=== PATIENT | male | born 1970 | race Two or more races ===

== ENCOUNTER 2020-04-24 11:12 | Emergency (ER) | payer MEDICAID, OTHER, SELFPAY ==
[~2020-04-24] VITALS: Ht 170.2 cm; Wt 86.5 kg
[2020-04-24 11:27] VITALS: BP 128/94
--- NOTE | 2020-04-24 11:38 | NUR ---
pt back to room via WC. Changed into hospital gown. Family at bedside.
--- NOTE | 2020-04-24 11:45 | NUR ---
Daughter, Monique, at bedside assisting in translation. Per daughter pt is in with c/o stomach and generalized swelling and "feels like the inside in going to pop"
[2020-04-24 12:43] LABS: BASOPHILS # (AUTO) 0.06 x10^3/uL (0-0.1); BASOPHILS % (AUTO) 1 % (0-1); EOSINOPHILS # (AUTO) 0.06 x10^3/uL (0-0.4); EOSINOPHILS % (AUTO) 1 % (1-7); LYMPHOCYTES # (AUTO) 1.31 x10^3/uL (1-3.4); LYMPHOCYTES % (AUTO) 19 % (22-44); MD NO; MEAN CORPUSCULAR HEMOGLOBIN 33.5 pg (27.5-34.5); MEAN CORPUSCULAR HGB CONC 32.4 g/dL (33.2-36.2); MEAN CORPUSCULAR VOLUME 103.3 fL (81-97); MEAN PLATELET VOLUME 7.6 fL (7.4-10.4); MONOCYTES # (AUTO) 0.76 x10^3/uL (0.2-0.8); MONOCYTES % (AUTO) 11 % (2-9); NEUTROPHILS # (AUTO) 4.64 x10^3/uL (1.8-6.8); NEUTROPHILS % (AUTO) 68 % (42-75); PLATELET COUNT 218 x10^3/uL (130-400); RED BLOOD COUNT 4.29 x10^6/uL (4.38-5.82); RED CELL DISTRIBUTION WIDTH 14.3 % (9.4-14.8)
--- NOTE | 2020-04-24 12:46 | NUR ---
BREAK RN: US AT BEDSIDE.
[2020-04-24 12:55] LABS: ALBUMIN 2.9 g/dL (3.4-5.0); ANION GAP 8 mmol/L (5-15); CALCIUM 8.4 mg/dL (8.5-10.1); CHLORIDE 109 mmol/L (98-107)
[2020-04-24 13:00] LABS: ALANINE AMINOTRANSFERASE 133 U/L (12-78); ALKALINE PHOSPHATASE 95 U/L (45-117); BILIRUBIN,TOTAL 1.4 mg/dL (0.2-1.0); CREATININE 0.78 mg/dL (0.7-1.3)
--- NOTE | 2020-04-24 14:26 | NUR ---
Contacted pts adolfo Luna, , and discussed discharge paperwork. All questions and concerns addressed and answered. Cheryl on her way to the ER to take pt home.
--- NOTE | 2020-04-24 14:30 | NUR ---
Patient/Caregiver given discharge instructions and they have confirmed that they understand the instructions. Patient ambulatory with steady gait.
== END 2020-04-24 14:38 | disposition home or self-care (01) ==
LOC: ED 12:30
DX: K70.11 Alcoholic hepatitis with ascites (principal); R60.0 Localized edema; E88.09 Other disorders of plasma-protein metabolism, not elsewhere classified
CPT/HCPCS: 36415; 76700; 80053; 83690; 85025; 99284

== ENCOUNTER 2020-04-27 16:12 | Emergency (ER) | payer SELFPAY ==
[~2020-04-27] VITALS: Ht 170.2 cm; Wt 90.0 kg
[2020-04-27] MEDS ORDERED: MORPHINE SULFATE 4 MG/ML, 1ML IVPush PRN (17:00)
[2020-04-27] MEDS ORDERED: ONDANSETRON 2MG/ML, 2ML IVPush ONE (17:00)
--- NOTE | 2020-04-27 17:00 | NUR ---
Alert, answering questions appropriately. Pt states abdominal pain/distention x 8-9 days. Pt is followed by liver team here. Also states that he was d/c'd from ED on Monday for same complaint, no relief from pain meds perscribed. Denies fever/chills. Pt also states, "liquid stool" starting today, pt is on lactulose. Denies chest pain/SOB.
[2020-04-27 17:04] LABS: BASOPHILS # (AUTO) 0.03 x10^3/uL (0-0.1); BASOPHILS % (AUTO) 1 % (0-1); EOSINOPHILS # (AUTO) 0.12 x10^3/uL (0-0.4); EOSINOPHILS % (AUTO) 2 % (1-7); LYMPHOCYTES # (AUTO) 1.18 x10^3/uL (1-3.4); LYMPHOCYTES % (AUTO) 19 % (22-44); MD NO; MEAN CORPUSCULAR HEMOGLOBIN 33.5 pg (27.5-34.5); MEAN CORPUSCULAR HGB CONC 32.6 g/dL (33.2-36.2); MEAN CORPUSCULAR VOLUME 102.7 fL (81-97); MEAN PLATELET VOLUME 7.5 fL (7.4-10.4); MONOCYTES # (AUTO) 0.65 x10^3/uL (0.2-0.8); MONOCYTES % (AUTO) 11 % (2-9); NEUTROPHILS % (AUTO) 68 % (42-75); PLATELET COUNT 234 x10^3/uL (130-400); RED BLOOD COUNT 4.26 x10^6/uL (4.38-5.82); RED CELL DISTRIBUTION WIDTH 14.6 % (9.4-14.8)
[2020-04-27 17:17] LABS: ALANINE AMINOTRANSFERASE 181 U/L (12-78); ALBUMIN 2.8 g/dL (3.4-5.0); ANION GAP 7 mmol/L (5-15); CALCIUM 8.2 mg/dL (8.5-10.1); CHLORIDE 110 mmol/L (98-107); CREATININE 1.03 mg/dL (0.7-1.3)
[2020-04-27 17:19] LABS: ALKALINE PHOSPHATASE 120 U/L (45-117); BILIRUBIN,TOTAL 0.8 mg/dL (0.2-1.0); TOTAL PROTEIN 5.7 g/dL (6.4-8.2)
--- NOTE | 2020-04-27 17:52 | NUR ---
Back from CT
[2020-04-27] MEDS ORDERED: OMNIPAQUE 350 MG/ML, 100ML BOTTLE ONE (17:58)
[2020-04-27 18:16] LABS: MICROSCOPIC INDICATED
--- NOTE | 2020-04-27 18:44 | NUR ---
Resting in [facility]. No needs.
[2020-04-27] MEDS ORDERED: FUROSEMIDE 40 MG TABLET ONE (19:12)
[2020-04-27] MEDS ORDERED: FUROSEMIDE 40 MG TABLET PO ONE (19:30)
[2020-04-27] MEDS ORDERED: POTASSIUM CHLORIDE 20 MEQ TAB.ER.PRT PO ONE (19:30)
--- NOTE | 2020-04-27 19:36 | NUR ---
Patient/Caregiver given discharge instructions and they have confirmed that they understand the instructions. Patient ambulatory with steady gait.
[2020-04-27 19:37] VITALS: BP 140/91
== END 2020-04-27 19:38 | disposition home or self-care (01) ==
LOC: ED 17:55
DX: K70.0 Alcoholic fatty liver (principal); B17.9 Acute viral hepatitis, unspecified; R18.8 Other ascites
CPT/HCPCS: 36415; 74177; 80053; 81001; 83690; 85025; 99285; Q9967

== ENCOUNTER 2020-05-12 06:29 | Emergency (ER) | payer MEDICAID ==
[~2020-05-12] VITALS: Ht 177.8 cm; Wt 92.6 kg
[2020-05-12 06:31] VITALS: BP 106/73
--- NOTE | 2020-05-12 06:46 | NUR ---
ERP TO BEDSIDE.
--- NOTE | 2020-05-12 07:00 | NUR ---
REPORT GIVEN TO EMMANUEL GARCIA.
[2020-05-12 07:10] LABS: BASOPHILS # (AUTO) 0.06 x10^3/uL (0-0.1); BASOPHILS % (AUTO) 1 % (0-1); EOSINOPHILS # (AUTO) 0.12 x10^3/uL (0-0.4); EOSINOPHILS % (AUTO) 2 % (1-7); LYMPHOCYTES # (AUTO) 1.14 x10^3/uL (1-3.4); LYMPHOCYTES % (AUTO) 18 % (22-44); MD NO; MEAN CORPUSCULAR HEMOGLOBIN 31.9 pg (27.5-34.5); MEAN CORPUSCULAR HGB CONC 31.9 g/dL (33.2-36.2); MEAN CORPUSCULAR VOLUME 100.1 fL (81-97); MEAN PLATELET VOLUME 7.7 fL (7.4-10.4); MONOCYTES # (AUTO) 0.76 x10^3/uL (0.2-0.8); MONOCYTES % (AUTO) 12 % (2-9); NEUTROPHILS # (AUTO) 4.21 x10^3/uL (1.8-6.8); NEUTROPHILS % (AUTO) 67 % (42-75); PLATELET COUNT 190 x10^3/uL (130-400); RED BLOOD COUNT 4.23 x10^6/uL (4.38-5.82); RED CELL DISTRIBUTION WIDTH 14.5 % (9.4-14.8)
[2020-05-12 07:21] LABS: ALBUMIN 3.2 g/dL (3.4-5.0); ANION GAP 8 mmol/L (5-15); CALCIUM 8.8 mg/dL (8.5-10.1); CHLORIDE 108 mmol/L (98-107)
[2020-05-12 07:25] LABS: ALANINE AMINOTRANSFERASE 47 U/L (12-78); ALKALINE PHOSPHATASE 115 U/L (45-117); BILIRUBIN,TOTAL 0.6 mg/dL (0.2-1.0); CREATININE 0.81 mg/dL (0.7-1.3); TOTAL PROTEIN 6.5 g/dL (6.4-8.2)
== END 2020-05-12 08:11 | disposition home or self-care (01) ==
LOC: ED 06:51
DX: R10.11 Right upper quadrant pain (principal); R60.0 Localized edema; R10.84 Generalized abdominal pain; R00.0 Tachycardia, unspecified; I10 Essential (primary) hypertension
CPT/HCPCS: 36415; 80053; 83690; 85025; 99283

== ENCOUNTER 2020-06-03 17:22 | Inpatient (IN) | payer MEDICAID ==
[~2020-06-03] VITALS: Ht 170.2 cm; Wt 96.4 kg
--- NOTE | 2020-06-03 18:26 | NUR ---
SHIFT SUPERVISOR RN: PT TO ROOM FROM [facility]
[2020-06-03 18:48] LABS: ALANINE AMINOTRANSFERASE 30 U/L (12-78); ALBUMIN 3.6 g/dL (3.4-5.0); ANION GAP 12 mmol/L (5-15); CALCIUM 8.4 mg/dL (8.5-10.1); CHLORIDE 94 mmol/L (98-107); CREATININE 2.95 mg/dL (0.7-1.3)
[2020-06-03 18:50] LABS: ALKALINE PHOSPHATASE 88 U/L (45-117); BILIRUBIN,TOTAL 1.8 mg/dL (0.2-1.0); TOTAL PROTEIN 7.1 g/dL (6.4-8.2)
--- NOTE | 2020-06-03 18:55 | NUR ---
PT STATED THAT THE DOCTOR TOLD HIM TO STOP TAKING ALL OF HIS MEDICATION ABOUT A WEEK AGO. STATED THAT SINCE THEN HE HAS NOTICED WEIGHT GAIN, AND SWELLING IN HIS LEGS.
[2020-06-03 19:15] LABS: BASOPHILS # (AUTO) 0.03 x10^3/uL (0-0.1); BASOPHILS % (AUTO) 1 % (0-1); EOSINOPHILS # (AUTO) 0.06 x10^3/uL (0-0.4); EOSINOPHILS % (AUTO) 1 % (1-7); LYMPHOCYTES # (AUTO) 1.13 x10^3/uL (1-3.4); LYMPHOCYTES % (AUTO) 21 % (22-44); MD NO; MEAN CORPUSCULAR HEMOGLOBIN 31.4 pg (27.5-34.5); MEAN CORPUSCULAR HGB CONC 33.2 g/dL (33.2-36.2); MEAN PLATELET VOLUME 8.4 fL (7.4-10.4); MONOCYTES # (AUTO) 0.65 x10^3/uL (0.2-0.8); MONOCYTES % (AUTO) 12 % (2-9); NEUTROPHILS # (AUTO) 3.49 x10^3/uL (1.8-6.8); NEUTROPHILS % (AUTO) 65 % (42-75); PLATELET COUNT 115 x10^3/uL (130-400); RED BLOOD COUNT 4.43 x10^6/uL (4.38-5.82); RED CELL DISTRIBUTION WIDTH 14.4 % (9.4-14.8)
[2020-06-03] MEDS ORDERED: POLYETHYLENE GLYCOL 17 GM PACKET PO PRN (21:30)
[2020-06-03] MEDS ORDERED: BISACODYL 10 MG SUPP PR PRN (21:30)
[2020-06-03] MEDS ORDERED: ACETAMINOPHEN 325 MG TABLET PO PRN (21:30)
--- NOTE | 2020-06-03 22:09 | NUR ---
[facility] [phone] PT'S DAUGHTER CALLED FOR UPDATE, OKAY TO TALK TO HER PER PT CONSENT.
[2020-06-03] MEDS: SODIUM CHLORIDE 0.9% 1,000 ML IV SCH (22:20)
--- NOTE | 2020-06-03 22:47 | NUR ---
REPORT GIVN TO ROBIN BENITEZ
[2020-06-03 23:18] VITALS: BP 116/85
[2020-06-04 01:19] LABS: POTASSIUM,URINE RANDOM 73 mmol/L
[2020-06-04 01:33] LABS: CHLORIDE,URINE RANDOM < 10 mmol/L; SODIUM,URINE RANDOM < 5 mmol/L
[2020-06-04 02:18] VITALS: BP 116/76
[2020-06-04 02:46] LABS: MICROSCOPIC INDICATED
[2020-06-04] MEDS: ONDANSETRON ODT 4 MG PO PRN (03:18)
[2020-06-04 04:50] LABS: BASOPHILS # (AUTO) 0.03 x10^3/uL (0-0.1); BASOPHILS % (AUTO) 1 % (0-1); EOSINOPHILS # (AUTO) 0.09 x10^3/uL (0-0.4); EOSINOPHILS % (AUTO) 2 % (1-7); LYMPHOCYTES # (AUTO) 1.31 x10^3/uL (1-3.4); LYMPHOCYTES % (AUTO) 25 % (22-44); MD NO; MEAN CORPUSCULAR HEMOGLOBIN 30.8 pg (27.5-34.5); MEAN CORPUSCULAR HGB CONC 32.5 g/dL (33.2-36.2); MEAN PLATELET VOLUME 8.2 fL (7.4-10.4); MONOCYTES # (AUTO) 0.59 x10^3/uL (0.2-0.8); MONOCYTES % (AUTO) 11 % (2-9); NEUTROPHILS # (AUTO) 3.28 x10^3/uL (1.8-6.8); NEUTROPHILS % (AUTO) 62 % (42-75); PLATELET COUNT 108 x10^3/uL (130-400); RED BLOOD COUNT 4.17 x10^6/uL (4.38-5.82); RED CELL DISTRIBUTION WIDTH 14.5 % (9.4-14.8)
[2020-06-04 05:06] LABS: ANION GAP 13 mmol/L (5-15); CALCIUM 8.3 mg/dL (8.5-10.1); CHLORIDE 94 mmol/L (98-107); CREATININE 3.09 mg/dL (0.7-1.3)
[2020-06-04] MEDS: SODIUM CHLORIDE 0.9% 1,000 ML IV SCH ×2 (05:30→13:30)
[2020-06-04 07:33] VITALS: BP 109/71
[2020-06-04] MEDS: SENNA/DOCUSATE TABLET PO SCH (08:27)
[2020-06-04 13:22] VITALS: BP 123/80
[2020-06-04] MEDS: HEPARIN 5,000 UNITS/ML, 1ML SQ SCH (18:14)
[2020-06-04 18:42] VITALS: BP 107/74
[2020-06-04] MEDS: GUAIFENESIN 200 MG TABLET PO SCH (19:29)
[2020-06-04] MEDS ORDERED: SODIUM CHLORIDE 0.9% 1,000 ML IV SCH (21:30)
[2020-06-05 01:21] VITALS: BP 129/77
[2020-06-05] MEDS: HEPARIN 5,000 UNITS/ML, 1ML SQ SCH ×3 (01:34→17:38)
[2020-06-05] MEDS: GUAIFENESIN/DM 200-20MG, 10ML UDC PO PRN ×3 (01:35→20:33)
[2020-06-05 01:58] LABS: CLOSTRIDIUM DIFFICILE ANTIGEN NEGATIVE; CLOSTRIDIUM DIFFICILE TOXIN NEGATIVE (Negative)
[2020-06-05 06:52] VITALS: BP 128/89
[2020-06-05 06:56] LABS: ANION GAP 15 mmol/L (5-15); CALCIUM 7.9 mg/dL (8.5-10.1); CHLORIDE 91 mmol/L (98-107); CREATININE 3.64 mg/dL (0.7-1.3)
[2020-06-05] MEDS ORDERED: SODIUM BICARBONATE 8.4% 150 MEQ in SODIUM CHLORIDE 0.45% 1,000 ML IV SCH (07:30)
[2020-06-05 07:52] LABS: O2 FLOW ROOM AIR L/min; PH, VENOUS 7.313 pH (7.320-7.420)
[2020-06-05] MEDS: SENNA/DOCUSATE TABLET PO SCH (09:27)
[2020-06-05] MEDS: GUAIFENESIN 200 MG TABLET PO SCH ×2 (09:39→20:34)
[2020-06-05 10:57] LABS: ANION GAP 14 mmol/L (5-15); CALCIUM 7.6 mg/dL (8.5-10.1); CHLORIDE 95 mmol/L (98-107); CREATININE 3.54 mg/dL (0.7-1.3)
[2020-06-05] MEDS: SODIUM BICARBONATE 650 MG TABLET PO SCH ×2 (11:10→20:34)
[2020-06-05 12:12] VITALS: BP 124/87
[2020-06-05 15:53] LABS: ANION GAP 13 mmol/L (5-15); CALCIUM 7.8 mg/dL (8.5-10.1); CHLORIDE 90 mmol/L (98-107); CREATININE 3.51 mg/dL (0.7-1.3)
[2020-06-05 16:00] LABS: INTERNATIONAL NORMALIZED RATIO 1.31 (0.93-1.1); PROTHROMBIN TIME 13.5 Seconds (9.6-11.5)
[2020-06-05 16:50] LABS: POTASSIUM,URINE RANDOM 43 mmol/L
[2020-06-05 16:57] LABS: CHLORIDE,URINE RANDOM < 10 mmol/L; SODIUM,URINE RANDOM < 5 mmol/L
[2020-06-05 17:27] LABS: OSMOLALITY,URINE 360 mOsm/kg (500-850)
[2020-06-05 19:37] VITALS: BP 123/75
[2020-06-05 21:26] LABS: ANION GAP 14 mmol/L (5-15); CHLORIDE 89 mmol/L (98-107)
[2020-06-05 21:27] LABS: CREATININE 3.42 mg/dL (0.7-1.3)
[2020-06-05] MEDS: ONDANSETRON ODT 4 MG PO PRN (23:06)
[2020-06-06 00:34] VITALS: BP 113/75
[2020-06-06 01:25] LABS: ANION GAP 14 mmol/L (5-15); CALCIUM 7.8 mg/dL (8.5-10.1); CHLORIDE 91 mmol/L (98-107); CREATININE 3.34 mg/dL (0.7-1.3)
[2020-06-06] MEDS: HEPARIN 5,000 UNITS/ML, 1ML SQ SCH ×3 (02:22→17:18)
[2020-06-06 05:41] LABS: BASOPHILS # (AUTO) 0.02 x10^3/uL (0-0.1); BASOPHILS % (AUTO) 0 % (0-1); EOSINOPHILS # (AUTO) 0.09 x10^3/uL (0-0.4); EOSINOPHILS % (AUTO) 2 % (1-7); LYMPHOCYTES % (AUTO) 29 % (22-44); MD NO; MEAN CORPUSCULAR HEMOGLOBIN 30.6 pg (27.5-34.5); MEAN CORPUSCULAR HGB CONC 32.3 g/dL (33.2-36.2); MONOCYTES # (AUTO) 0.63 x10^3/uL (0.2-0.8); MONOCYTES % (AUTO) 11 % (2-9); NEUTROPHILS # (AUTO) 3.26 x10^3/uL (1.8-6.8); NEUTROPHILS % (AUTO) 58 % (42-75); PLATELET COUNT 142 x10^3/uL (130-400); RED BLOOD COUNT 4.22 x10^6/uL (4.38-5.82); RED CELL DISTRIBUTION WIDTH 14.1 % (9.4-14.8)
[2020-06-06 05:43] LABS: ANION GAP 13 mmol/L (5-15); CHLORIDE 93 mmol/L (98-107); CREATININE 3.26 mg/dL (0.7-1.3)
[2020-06-06 06:50] VITALS: BP 94/67
[2020-06-06 08:48] LABS: ANION GAP 13 mmol/L (5-15); CALCIUM 8.1 mg/dL (8.5-10.1); CHLORIDE 90 mmol/L (98-107); CREATININE 3.21 mg/dL (0.7-1.3)
[2020-06-06] MEDS: GUAIFENESIN 200 MG TABLET PO SCH ×2 (09:10→20:11)
[2020-06-06] MEDS: SENNA/DOCUSATE TABLET PO SCH (09:10)
[2020-06-06] MEDS: SODIUM BICARBONATE 650 MG TABLET PO SCH ×2 (09:10→20:12)
[2020-06-06] MEDS ORDERED: FUROSEMIDE 100 MG/10 ML IV ONE (10:00)
[2020-06-06 13:29] LABS: ANION GAP 11 mmol/L (5-15); CALCIUM 7.8 mg/dL (8.5-10.1); CHLORIDE 93 mmol/L (98-107); CREATININE 3.12 mg/dL (0.7-1.3)
[2020-06-06 13:34] VITALS: BP 93/64
[2020-06-06 13:36] LABS: TROPONIN I 0.019 ng/mL (0.000-0.045)
[2020-06-06 17:28] LABS: ANION GAP 11 mmol/L (5-15); CALCIUM 7.7 mg/dL (8.5-10.1); CHLORIDE 92 mmol/L (98-107); CREATININE 2.98 mg/dL (0.7-1.3)
[2020-06-06 19:29] VITALS: BP 126/78
[2020-06-06] MEDS: GUAIFENESIN/DM 200-20MG, 10ML UDC PO PRN (22:55)
[2020-06-07 01:15] VITALS: BP 134/85
[2020-06-07] MEDS: HEPARIN 5,000 UNITS/ML, 1ML SQ SCH ×3 (02:55→16:31)
[2020-06-07 06:26] LABS: ALBUMIN 3.2 g/dL (3.4-5.0); ANION GAP 11 mmol/L (5-15); CALCIUM 8.2 mg/dL (8.5-10.1); CHLORIDE 93 mmol/L (98-107)
[2020-06-07 06:31] LABS: ALANINE AMINOTRANSFERASE 31 U/L (12-78); ALKALINE PHOSPHATASE 84 U/L (45-117); BILIRUBIN,TOTAL 1.6 mg/dL (0.2-1.0); CREATININE 2.54 mg/dL (0.7-1.3); TOTAL PROTEIN 6.5 g/dL (6.4-8.2)
[2020-06-07 07:19] VITALS: BP 121/85
[2020-06-07] MEDS: SENNA/DOCUSATE TABLET PO SCH (08:22)
[2020-06-07] MEDS ORDERED: REGADENOSON 0.4 MG/5 ML SYRINGE ONE (08:48)
[2020-06-07] MEDS: FUROSEMIDE 40 MG/4 ML IV SCH ×2 (10:38→16:32)
[2020-06-07] MEDS: SODIUM BICARBONATE 650 MG TABLET PO SCH ×2 (10:39→21:06)
[2020-06-07] MEDS: GUAIFENESIN 200 MG TABLET PO SCH ×2 (10:39→21:06)
[2020-06-07 12:25] VITALS: BP 105/76
[2020-06-07] MEDS: GUAIFENESIN/DM 200-20MG, 10ML UDC PO PRN (16:31)
[2020-06-07 19:34] VITALS: BP 109/72
[2020-06-07] MEDS: THIAMINE 100MG TABLET PO SCH (21:06)
[2020-06-08 01:14] VITALS: BP 105/68
[2020-06-08] MEDS: HEPARIN 5,000 UNITS/ML, 1ML SQ SCH ×3 (02:40→18:29)
[2020-06-08 06:00] LABS: CHLORIDE 97 mmol/L (98-107)
[2020-06-08 06:13] LABS: ALANINE AMINOTRANSFERASE 31 U/L (12-78); ALBUMIN 3.3 g/dL (3.4-5.0); ALKALINE PHOSPHATASE 96 U/L (45-117); ANION GAP 9 mmol/L (5-15); BILIRUBIN,TOTAL 1.4 mg/dL (0.2-1.0); CALCIUM 8.4 mg/dL (8.5-10.1); CREATININE 1.67 mg/dL (0.7-1.3); TOTAL PROTEIN 6.5 g/dL (6.4-8.2)
[2020-06-08 07:56] VITALS: BP 131/82
[2020-06-08] MEDS: GUAIFENESIN/DM 200-20MG, 10ML UDC PO PRN (08:51)
[2020-06-08] MEDS: GUAIFENESIN 200 MG TABLET PO SCH ×2 (08:52→20:29)
[2020-06-08] MEDS: SENNA/DOCUSATE TABLET PO SCH (08:52)
[2020-06-08] MEDS: SODIUM BICARBONATE 650 MG TABLET PO SCH ×2 (08:53→20:29)
[2020-06-08] MEDS: THIAMINE 100MG TABLET PO SCH ×2 (08:53→20:29)
[2020-06-08 12:04] VITALS: BP 111/83
[2020-06-08 20:20] VITALS: BP 118/86
[2020-06-09] MEDS: HEPARIN 5,000 UNITS/ML, 1ML SQ SCH ×2 (01:34→09:46)
[2020-06-09 01:58] VITALS: BP 121/84
[2020-06-09 06:21] LABS: ANION GAP 9 mmol/L (5-15); CALCIUM 8.5 mg/dL (8.5-10.1); CHLORIDE 107 mmol/L (98-107); CREATININE 1.31 mg/dL (0.7-1.3)
[2020-06-09 06:47] VITALS: BP 126/78
[2020-06-09] MEDS: SENNA/DOCUSATE TABLET PO SCH (09:00)
[2020-06-09] MEDS ORDERED: SPIRONOLACTONE 25 MG TABLET PO SCH (09:30)
[2020-06-09] MEDS ORDERED: LISINOPRIL 10 MG TABLET PO SCH (09:30)
[2020-06-09] MEDS ORDERED: FUROSEMIDE 40 MG TABLET PO SCH (09:30)
[2020-06-09] MEDS ORDERED: SPIRONOLACTONE 25 MG TABLET ONE (09:51)
[2020-06-09] MEDS ORDERED: FUROSEMIDE 40 MG TABLET ONE (09:52)
[2020-06-09] MEDS ORDERED: LISINOPRIL 10 MG TABLET ONE (09:52)
[2020-06-09] MEDS: GUAIFENESIN 200 MG TABLET PO SCH (09:55)
[2020-06-09] MEDS: SODIUM BICARBONATE 650 MG TABLET PO SCH (09:56)
[2020-06-09] MEDS: THIAMINE 100MG TABLET PO SCH (09:56)
[2020-06-09 11:15] VITALS: BP 130/88
[2020-06-09] MEDS ORDERED: SPIR25TA PO (11:34)
[2020-06-09] MEDS ORDERED: LISI-167 PO (11:34)
[2020-06-09] MEDS ORDERED: FURO40TA6 PO (11:34)
[2020-06-09 12:33] VITALS: BP 125/81
[2020-06-09] MEDS ORDERED: FLU VACC QS2020-21(6MOS UP)/PF 60MCG/0.5 ML SYR IM-VACC ONE (13:30)
== END 2020-06-09 13:50 | disposition home or self-care (01) | DRG 683 ==
LOC: ED 19:19 → EDIP 21:32 → 4EST 23:17
PROVIDERS: ADMIT Family Medicine; ATTEND Hospitalist
DX: N17.0 Acute kidney failure with tubular necrosis (principal); E87.1 Hypo-osmolality and hyponatremia; I50.20 Unspecified systolic (congestive) heart failure; K70.30 Alcoholic cirrhosis of liver without ascites; E87.5 Hyperkalemia; I34.0 Nonrheumatic mitral (valve) insufficiency; I11.0 Hypertensive heart disease with heart failure
CPT/HCPCS: 36415; 71045; 74176; 76700; 78452; 80048; 80053; 81001; 82436; 82550; 82570; 82803; 83615; 83690; 83880; 83935; 84133; 84300; 84484; 85025; 85610; 87324; 90686; 93005; 93017; 93306; 99285; G0378; J1644; J1940; J2785; Q0162; A9502; J7030

== ENCOUNTER 2020-12-15 11:27 | Inpatient (IN) | payer MEDICAID ==
[~2020-12-15] VITALS: Ht 170.2 cm; Wt 105.0 kg
[~2020-12-15 11:27] MED LIST: FURO40TA6 PO; LISI-167 PO; SPIR25TA PO
--- NOTE | 2020-12-15 11:59 | NUR ---
pt walked back from triage with chief c/o RUQ pain for a few weeks. monday sudden chest pain. pt denies SOB or recent trauma. Dr. Paulino at bedside
[2020-12-15] MEDS ORDERED: MAALOX/HYOSCYAMINE/LIDOCAINE 45 ML BTL PO ONE (12:00)
[2020-12-15] MEDS ORDERED: MAALOX/HYOSCYAMINE/LIDOCAINE 45 ML BTL ONE (12:04)
[2020-12-15 12:25] LABS: BASOPHILS % (AUTO) 1 % (0-1); EOSINOPHILS % (AUTO) 5 % (1-7); LYMPHOCYTES % (AUTO) 30 % (22-44); MEAN CORPUSCULAR HEMOGLOBIN 30.4 pg (27.5-34.5); MEAN CORPUSCULAR HGB CONC 34.1 g/dL (33.2-36.2); MEAN PLATELET VOLUME 7.5 fL (7.4-10.4); MONOCYTES % (AUTO) 14 % (2-9); NEUTROPHILS % (AUTO) 50 % (42-75); PLATELET COUNT 229 x10^3/uL (130-400); RED BLOOD COUNT 4.62 x10^6/uL (4.38-5.82); RED CELL DISTRIBUTION WIDTH 14.5 % (9.4-14.8)
[2020-12-15 12:27] LABS: MD NO
[2020-12-15 12:31] LABS: ALANINE AMINOTRANSFERASE 40 U/L (12-78); ALBUMIN 3.6 g/dL (3.4-5.0); ANION GAP 5 mmol/L (5-15); CHLORIDE 108 mmol/L (98-107); CREATININE 0.84 mg/dL (0.7-1.3)
[2020-12-15 12:33] LABS: ALKALINE PHOSPHATASE 134 U/L (45-117); BILIRUBIN,TOTAL 0.4 mg/dL (0.2-1.0); TOTAL PROTEIN 7.7 g/dL (6.4-8.2)
--- NOTE | 2020-12-15 12:44 | NUR ---
US at bedside
[2020-12-15] MEDS ORDERED: METRONIDAZOLE PMX 500MG/100ML 100 ML IV ONE (15:00)
[2020-12-15] MEDS ORDERED: SODIUM CHLORIDE 0.9% 1,000ML IVBOLUS ONE (15:00)
[2020-12-15] MEDS ORDERED: CEFOTETAN PMX 1GM/50ML 50 ML IVPB ONE (15:00)
--- NOTE | 2020-12-15 15:11 | NUR ---
PT MEDICATED PER EMAR, PT RESTING IN [place] AT THIS TIME, PER PT NO NEEDS AT THIS TIME, WCTM.
[2020-12-15] MEDS ORDERED: MORPHINE SULFATE 4 MG/ML, 1ML IVPush PRN (16:30)
[2020-12-15] MEDS ORDERED: ONDANSETRON 2MG/ML, 2ML IVPush PRN ×3 (16:30→22:30)
--- NOTE | 2020-12-15 17:37 | NUR ---
PT RESTING ON [employer] IN NAD. VSS.
[2020-12-15] MEDS ORDERED: BUPIVACAINE/PF 0.5% ONE (17:49)
[2020-12-15] MEDS ORDERED: EPINEPHRINE 1 MG/ML, 1ML ONE (17:49)
[2020-12-15] MEDS ORDERED: METRONIDAZOLE PMX 500MG/100ML 100 ML ONE (17:50)
[2020-12-15] MEDS ORDERED: MIDAZOLAM 1 MG/ML, 2ML ONE (18:34)
[2020-12-15] MEDS ORDERED: FENTANYL PF 250 MCG/5ML ONE (20:07)
[2020-12-15] MEDS ORDERED: OXYcodone 5 MG/5 ML ORAL.SOL UDC ONE (20:09)
[2020-12-15] MEDS ORDERED: FENTANYL PF 100 MCG/2ML ONE (20:09)
[2020-12-15] MEDS: FENTANYL PF 100 MCG/2ML IV PRN ×2 (20:10→20:20)
[2020-12-15] MEDS ORDERED: HYDROmorphone 1 MG/ML, 1ML INJ ONE (20:15)
[2020-12-15] MEDS ORDERED: MEPERIDINE/PF 25MG/ML,1ML ONE (20:15)
[2020-12-15] MEDS ORDERED: DIAZEPAM 5 MG/ML, 2ML IV PRN ×2 (20:30)
[2020-12-15] MEDS ORDERED: OXYcodone 5 MG/5 ML ORAL.SOL UDC PO PRN (20:30)
[2020-12-15] MEDS ORDERED: PROMETHAZINE 25 MG/ML, 1ML IV PRN (20:30)
[2020-12-15] MEDS ORDERED: hydrALAzine 20 MG/ML, 1ML IV PRN (20:30)
[2020-12-15] MEDS ORDERED: HYDROmorphone 1 MG/ML, 1ML INJ IV PRN (20:30)
[2020-12-15] MEDS ORDERED: MEPERIDINE/PF 25MG/0.5ML IVPush PRN (20:30)
[2020-12-15] MEDS ORDERED: ALBUTEROL SULFATE 2.5 MG/3 ML NPPB PRN (20:30)
[2020-12-15] MEDS ORDERED: LABETALOL 5MG/ML, 20ML IV PRN (20:30)
[2020-12-15] MEDS ORDERED: METOCLOPRAMIDE 5 MG/ML, 2ML IV PRN (20:30)
[2020-12-15] MEDS ORDERED: KETOROLAC 30 MG/1 ML IV PRN (20:30)
[2020-12-15] MEDS ORDERED: DIPHENHYDRAMINE 50 MG/ML, 1ML IVPush PRN (22:30)
[2020-12-15] MEDS: HYDROcodone/APAP 5/325 TABLET PO PRN (22:44)
[2020-12-15] MEDS: ENOXAPARIN 40 MG/0.4 ML SQ SCH (22:45)
[2020-12-15 23:21] VITALS: BP 156/84
[2020-12-15] MEDS: MORPHINE SULFATE 4 MG/ML, 1ML IVPush PRN (23:47)
[2020-12-16] MEDS: MORPHINE SULFATE 4 MG/ML, 1ML IVPush PRN ×3 (00:30→22:15)
[2020-12-16 03:31] VITALS: BP 120/82
[2020-12-16] MEDS: HYDROcodone/APAP 5/325 TABLET PO PRN ×4 (04:55→21:31)
[2020-12-16] MEDS: LACTATED RINGERS 1,000 ML IV SCH ×3 (05:16→21:00)
[2020-12-16 07:38] VITALS: BP 123/80
[2020-12-16] MEDS ORDERED: HYDR-1067 PO (09:50)
[2020-12-16 13:32] VITALS: BP 118/79
[2020-12-16 18:33] VITALS: BP 126/85
[2020-12-16] MEDS: KETOROLAC 30 MG/1 ML IV PRN (21:03)
[2020-12-16] MEDS: ENOXAPARIN 40 MG/0.4 ML SQ SCH (22:11)
[2020-12-17 01:04] VITALS: BP 113/74
[2020-12-17] MEDS: HYDROcodone/APAP 5/325 TABLET PO PRN ×5 (01:35→20:45)
[2020-12-17] MEDS: LACTATED RINGERS 1,000 ML IV SCH ×3 (03:35→21:00)
[2020-12-17] MEDS: KETOROLAC 30 MG/1 ML IV PRN (05:37)
[2020-12-17 05:54] LABS: BASOPHILS % (AUTO) 0 % (0-1); EOSINOPHILS % (AUTO) 1 % (1-7); LYMPHOCYTES % (AUTO) 21 % (22-44); MEAN CORPUSCULAR HEMOGLOBIN 30.5 pg (27.5-34.5); MEAN CORPUSCULAR HGB CONC 34.4 g/dL (33.2-36.2); MEAN PLATELET VOLUME 7.1 fL (7.4-10.4); MONOCYTES % (AUTO) 14 % (2-9); NEUTROPHILS % (AUTO) 64 % (42-75); PLATELET COUNT 183 x10^3/uL (130-400); RED BLOOD COUNT 3.27 x10^6/uL (4.38-5.82)
[2020-12-17 05:57] LABS: ALBUMIN 2.9 g/dL (3.4-5.0); ANION GAP 5 mmol/L (5-15); CALCIUM 8.6 mg/dL (8.5-10.1); CHLORIDE 102 mmol/L (98-107)
[2020-12-17 06:02] LABS: ALANINE AMINOTRANSFERASE 85 U/L (12-78); ALKALINE PHOSPHATASE 104 U/L (45-117); BILIRUBIN,TOTAL 0.8 mg/dL (0.2-1.0); CREATININE 0.69 mg/dL (0.7-1.3); TOTAL PROTEIN 6.4 g/dL (6.4-8.2)
[2020-12-17 06:03] LABS: MD NO
[2020-12-17 07:02] VITALS: BP 108/64
[2020-12-17 13:39] VITALS: BP 127/67
[2020-12-17 19:44] VITALS: BP 121/64
[2020-12-17] MEDS: ENOXAPARIN 40 MG/0.4 ML SQ SCH (22:18)
[2020-12-18 01:57] VITALS: BP 129/70
[2020-12-18] MEDS: HYDROcodone/APAP 5/325 TABLET PO PRN ×3 (02:09→11:18)
[2020-12-18] MEDS: LACTATED RINGERS 1,000 ML IV SCH ×2 (04:13→12:35)
[2020-12-18 07:17] VITALS: BP 136/81
== END 2020-12-18 13:20 | disposition home or self-care (01) | DRG 419 ==
LOC: ED 14:49 → OBSVTOIN 14:50 → EDIP 14:50 → ED 14:54 → 4NE 21:17 → DCLOUNGE 12-18 13:05
PROVIDERS: ADMIT Surgery; ATTEND Surgery
PROC: 0FT44ZZ Resection of Gallbladder, Percutaneous Endoscopic Approach (ICD-10-PCS; principal; 2020-12-17)
DX: K80.00 Calculus of gallbladder with acute cholecystitis without obstruction (principal); K74.60 Unspecified cirrhosis of liver; K66.0 Peritoneal adhesions (postprocedural) (postinfection); I10 Essential (primary) hypertension; Z20.822 Contact with and (suspected) exposure to COVID-19; K82.8 Other specified diseases of gallbladder; Z79.899 Other long term (current) drug therapy
CPT/HCPCS: 36415; 96365; 96368; 99285; S0020; 76700; 80053; 83690; 85025; 87635; 88304; 93005; G0378; J0171; J1170; J1650; J1885; J2175; J2250; J3010; J2270; J7030; J7120